=== PATIENT | male | born 1990 | race Caucasian/White ===

== ENCOUNTER 2019-01-22 00:30 | Emergency (ER) | payer MEDICAID ==
[~2019-01-22] VITALS: Ht 165.1 cm; Wt 74.0 kg
[2019-01-22] MEDS ORDERED: KETOROLAC 60MG/2ML VIAL IM STA (01:13)
[2019-01-22 01:36] LABS: BASOPHILS % 0.8 % (0.0-2.0); EOSINOPHILS % 2.8 % (0.0-5.0); HEMATOCRIT. 42.9 % (42.0-52.0); HEMOGLOBIN. 14.9 g/dL (14.0-18.0); LYMPHOCYTES % 28.6 % (20.0-50.0); MEAN CORPUSCULAR HEMOGLOBIN 29.5 pg (28.0-32.0); MEAN CORPUSCULAR VOLUME 84.8 fL (80.0-94.0); MEAN PLATELET VOLUME 7.7 fl (7.4-10.4); MONOCYTES % 7.6 % (2.0-8.0); NEUTROPHILS % 60.2 % (40.0-76.0); PLATELET 206 x1000/uL (130-400); RED BLOOD CELL COUNT 5.06 mill/uL (4.7-6.1); RED CELL DISTRIBUTION WIDTH 12.7 % (11.6-14.6)
[2019-01-22 01:42] LABS: CHLORIDE 104 mEq/L (98-107)
[2019-01-22 02:21] VITALS: BP 112/68
== END 2019-01-22 02:22 | disposition home or self-care (01) ==
LOC: ER 00:30
DX: M10.9 Gout, unspecified (principal)
CPT/HCPCS: 36415; 73630; 80048; 84550; 85025; 96372; 99284; J1885

== ENCOUNTER 2019-08-06 22:02 | Emergency (ER) | payer MEDICAID ==
[~2019-08-06] VITALS: Ht 167.6 cm; Wt 77.0 kg
[2019-08-07] MEDS ORDERED: IBUPROFEN 600MG TABLET PO ONE (01:15)
[2019-08-07 04:42] VITALS: BP 121/73
== END 2019-08-07 04:43 | disposition home or self-care (01) ==
LOC: ER 23:45
DX: S89.81XA Other specified injuries of right lower leg, initial encounter (principal); W50.0XXA Accidental hit or strike by another person, initial encounter; Y93.89 Activity, other specified; Y92.89 Other specified places as the place of occurrence of the external cause
CPT/HCPCS: 73562; 99283

== ENCOUNTER 2021-04-06 22:52 | Emergency (ER) | payer MEDICAID ==
[~2021-04-06] VITALS: Ht 165.1 cm; Wt 73.0 kg
[2021-04-06] MEDS ORDERED: KETOROLAC 30MG/ML VIAL IM ONE (23:30)
[2021-04-07] MEDS ORDERED: IBUP-2029 MT (01:53)
[2021-04-07] MEDS ORDERED: HYDR-4346 MT (01:53)
[2021-04-07 02:19] VITALS: BP 124/71
== END 2021-04-07 02:20 | disposition home or self-care (01) ==
LOC: ER 23:24
DX: S82.142A Displaced bicondylar fracture of left tibia, initial encounter for closed fracture (principal); W50.0XXA Accidental hit or strike by another person, initial encounter; R03.0 Elevated blood-pressure reading, without diagnosis of hypertension; Y93.89 Activity, other specified; Y92.018 Other place in single-family (private) house as the place of occurrence of the external cause
CPT/HCPCS: 73562; 96372; 99283; J1885; L1830